=== PATIENT | female | born 1980 | race Caucasian/White ===

== ENCOUNTER 2023-09-28 17:40 | Emergency (ER) | payer BC, SELFPAY ==
[2023-09-28 17:45] VITALS: BP 143/93
--- NOTE | 2023-09-28 18:19 | ED.GENMED ---
History of Present Illness
General
Chief Complaint: Head Injury
Source: patient
Exam Limitations: none
Time Seen by Provider: 09/28/23 18:12
Travel History
Have you had any contact with someone who has COVID-19?: No
Do you have any symptoms of coronavirus? Fever > 100 degrees, chills, cough, shortness of breath, sore throat, loss of taste or smell, muscle aches, or headache?: No
History of Present Illness
History of Present Illness:
See MDM
Past History
Past History
ED Past Medical History: Other (Ovarian cyst)
ED Past Surgical History:
Social History
Tobacco: Non-smoker
Alcohol: Occasional
Personal:
Living: with family
Employment: Employed
Phy Exam
Physical Exam
Physical Exam:
See MDM
Course
Orders/Labs/Results
Orders:
Orders
09/28/23 18:19
CT Head W/o Iv Contrast Urgent
Comment:
Reason For Exam: posterior head injury, vomiting, headache
Ondansetron Orally Disint [Zofran Odt (Orally Disintegrating)] 4 mg PO NOW STA
09/28/23 18:20
Ondansetron Orally Disint [Zofran Odt (Orally Disintegrating)] 4 mg .ROUTE .[facility]
Vital Signs
Initial and Last Documented VS:
Initial Vital Signs
Temp Pulse Resp BP Pulse Ox
97.7 F 80 20 143/93 99
09/28/23 17:45 09/28/23 17:45 09/28/23 17:45 09/28/23 17:45 09/28/23 17:45
Last Documented Vital Signs
Temp Pulse Resp BP Pulse Ox
97.7 F 80 20 143/93 99
09/28/23 17:45 09/28/23 17:45 09/28/23 17:45 09/28/23 17:45 09/28/23 17:45
MDM/Problems Addressed
Differential Diagnosis Includes:
HPI and MDM Narrative:
43-year-old female presenting with headache, nausea and vomiting. 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 Child was hitting a baseball with a bat in the leg over the back. The bat flew and hit the back of her head. Since
then, patient has had headache, photophobia and vomiting.
Given her ongoing symptoms, will obtain CT to rule out any evidence of fracture or bleed but otherwise discussed expectant management of concussion
Physical exam
General: Lying in bed in the dark
HEENT: protecting airway. Pupils equal reactive. No palpable scalp hematoma
Neck: supple
CV: No evidence of cyanosis
Resp: No accessory muscle use
Abd: Non-distended
Extremities: No deformities
Neuro: alert
Psych: Normal affect
Skin: Intact
Problems Addressed including Acute and Chronic Conditions affecting care:
1. Head injury
Acuity: acute
Prognosis: stable
Details: Will obtain CT rule out hemorrhage versus fracture but otherwise discussed concussion
Updates
Patient updated on the CT findings of Chiari I malformation
Differential Diagnosis (but not limited to): Concussion, skull fracture, intracranial hemorrhage
Testing considered: CT neck but no tenderness noted
Drug therapy (if applicable): OTC meds, please see d/c instruction regarding Rx drugs
Amount and/or Complexity of Data Reviewed
Clinical info obtained from: Patient
External data reviewed: N/A
Labs I independently reviewed (but not limited to): N/A
Radiology: The CT scan was personally and independently reviewed. In addition, official CT report reviewed.
Pulse Ox: not hypoxic
EKG independently reviewed: N/A
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
Critical Care: N/A
Risk of Complication:
Social Determinants of health: Good social support
Discussed with other providers: N/A
Escalation of Care includes Admit/Obs: After being observed in the Emergency Department, pt stable for discharge.
Occasional wrong word or 'sound a like' substitutions may have occurred due to the inherent limitations of voice recognition software. Read the chart carefully and recognize, using context, where substitutions have occurred.
*Critical Care Note
Total Time (30-74mins, 75-104mins- exclusive of procedures): Not Applicable
ED Attending Note
-
Portions of this chart may have been created with voice recognition software.� Occasional wrong word or��sound alike� substitutions may have occurred due to the inherent limitations of voice recognition software.
Discharge Plan
Departure
Patient Disposition: Home (Routine Discharge)
Date of Disposition: 09/28/23
Time of Disposition: 20:19
Patient with high blood pressure during this ER visit?: Yes
Discharge Problem:
Concussion
Instructions: Concussion, Adult (DC), BLOOD PRESSURE
Prescriptions:
New
ondansetron 4 mg Tablet,Disintegrating
4 mg PO BIDPRN PRN (Reason: nausea/vomiting) Qty: 10 0RF
No Action
oxycodone-acetaminophen 5 MG/325 MG tablet
1 tab PO Q3HPRN PRN (Reason: moderate pain) Qty: 14 0RF
ibuprofen 600 MG tablet
600 mg PO Q4HPRN PRN (Reason: moderate pain/cramps) Qty: 60 0RF
Referrals:
Abril Jones PA-C [Family Provider] -
Stand Alone Forms: Return to Work
Activity Restrictions/Additional Instructions:
Please return for any worsening symptoms.
You may return at any time if you have further concerns.
Please follow up with your doctor at the first available appointment, preferably this week.
Thank you for choosing [facility].
Interventions
Interventions:
*Risk Screen - Suicide Last Done: 09/28/23 17:45
*General Assessment Last Done: 09/28/23 17:45
*Neglect/Abuse Screening Last Done: 09/28/23 17:45
ED- Neurological Assessment Last Done: 09/28/23 17:55
ED-Skin Assessment Last Done: 09/28/23 18:00
Discharge Date and Time
Print Language: SOMALI
[2023-09-28] MEDS: ZOFRAN ODT (ORALLY DISINTEGRATING) 4 MG PO (18:21)
== END 2023-09-28 20:19 | disposition home or self-care (01) ==
LOC: EMR 17:40
PROVIDERS: EMERGENCY PHYSICIAN Student in an Organized Health Care Education/Training Program; FAMILY PHYSICIAN Physician Assistant Medical
DX: S06.0XAA Concussion with loss of consciousness status unknown, initial encounter (principal); W21.11XA Struck by baseball bat, initial encounter; R03.0 Elevated blood-pressure reading, without diagnosis of hypertension
CPT/HCPCS: 99284; 70450

== ENCOUNTER → 2025-04-12 18:54 | Outpatient (REF) | payer OTHER, SELFPAY | LOC: WDC 18:54 | PROVIDERS: ATTENDING PHYSICIAN Student in an Organized Health Care Education/Training Program; FAMILY PHYSICIAN Nurse Practitioner Family | DX: Z12.31 Encounter for screening mammogram for malignant neoplasm of breast (principal) | CPT/HCPCS: 77063; 77067 ==